=== PATIENT | male | born 1985 | race Caucasian/White ===

== ENCOUNTER 2017-09-01 11:01 | Outpatient (CLI) | payer MEDICAID ==
[2017-09-01 11:18] LABS: MUDS CUTOFF CONCENTRATIONS CUTOFF CONC BELOW:
[2017-09-01 11:30] LABS: COCAINE SCREEN URINE NEGATIVE (NEGATIVE); METHAMPHETAMINES SCREEN, URINE NEGATIVE (NEGATIVE); OPIATE SCREEN, URINE NEGATIVE (NEGATIVE)
[2017-09-01 11:31] LABS: AMPHETAMINE SCREEN,URINE NEGATIVE (NEGATIVE); BENZODIAZEPINES SCREEN, URINE NEGATIVE (NEGATIVE); METHADONE SCREEN, URINE NEGATIVE (NEGATIVE); OXYCODONE SCREEN, URINE NEGATIVE (NEGATIVE); PROPOXYPHENE SCREEN, URINE NEGATIVE (NEGATIVE); TRICYCLIC ANTIDEPRESSANT,URINE NEGATIVE (NEGATIVE)
== END 2017-09-01 11:02 | disposition home or self-care (01) ==
LOC: LAB 11:01
PROVIDERS: ATTEND Psychiatry & Neurology Psychiatry
DX: Z79.899 Other long term (current) drug therapy (principal)
CPT/HCPCS: 80306

== ENCOUNTER 2018-01-21 15:24 | Outpatient (CLI) | payer MEDICAID ==
[2018-01-21 15:47] LABS: BASOPHILS # (AUTO) 0.1 10^3/uL (0.0-0.1); BASOPHILS % (AUTO) 0.9 %; EOSINOPHILS # (AUTO) 0.3 10^3/uL (0.0-0.7); EOSINOPHILS % (AUTO) 3.9 %; HGB - HEMOGLOBIN 15.4 g/dL (14.0-18.0); LYMPHOCYTES # (AUTO) 2.9 10^3/uL (1.5-3.5); LYMPHOCYTES % (AUTO) 40.3 %; MEAN CORPUSCULAR HEMOGLOBIN 31.1 pg (27.0-31.0); MEAN CORPUSCULAR HGB CONC 35.6 g/dL (32.0-36.0); MEAN CORPUSCULAR VOLUME 87.3 fL (80.0-94.0); MEAN PLATELET VOLUME 8.3 fL (7.4-11.4); MONOCYTES # (AUTO) 0.9 10^3/uL (0.0-1.0); MONOCYTES % (AUTO) 12.7 %; NEUTROPHILS % (AUTO) 42.2 %; PLT - PLATELET COUNT 216 10^3/uL (130-450); RED BLOOD COUNT 4.97 10^6/uL (4.70-6.10); RED CELL DISTRIBUTION WIDTH 13.8 % (12.0-15.0); WHITE BLOOD COUNT 7.1 x10^3/uL (4.8-10.8)
[2018-01-21 16:03] LABS: ALBUMIN 4.2 g/dL (3.2-5.5); ALBUMIN/GLOBULIN RATIO 1.4 (1.0-2.2); ALKALINE PHOSPHATASE 63 IU/L (42-121); ALT ALANINE AMINOTRANSFERASE 48 IU/L (10-60); AST ASPARTATE AMINOTRANSFERASE 31 IU/L (10-42); BILIRUBIN,TOTAL 1.2 mg/dL (0.2-1.0); BUN - BLOOD UREA NITROGEN 13 mg/dL (6-20); CALCIUM 9.3 mg/dL (8.5-10.3); CARBON DIOXIDE - CO2 26 mmol/L (21-32); CHLORIDE 102 mmol/L (101-111); CHOLESTEROL 240 mg/dL; CREATININE 0.8 mg/dL (0.6-1.2); GFR - MDRD 114 (>89); GLUCOSE 93 mg/dL (70-100); HDL CHOLESTEROL 40 mg/dL; SODIUM 136 mmol/L (135-145); TOTAL PROTEIN 7.2 g/dL (6.7-8.2)
[2018-01-21 16:26] LABS: LDL CHOLESTEROL,DIRECT 121 mg/dL
[2018-01-21 16:37] LABS: THYROID STIMULATING HORMONE 2.13 uIU/mL (0.34-5.60)
[2018-01-21 16:39] LABS: FREE T4 (FREE THYROXINE) 0.8 ng/dL (0.58-1.64)
[2018-01-21 16:44] LABS: TOTAL T3 1.03 ng/mL (0.87-1.78)
== END 2018-01-21 15:25 | disposition home or self-care (01) ==
LOC: LAB 15:24
PROVIDERS: ATTEND Registered Nurse
DX: F20.9 Schizophrenia, unspecified (principal); Z79.899 Other long term (current) drug therapy
CPT/HCPCS: 36415; 80050; 80061; 80306; 83721; 84439; 84480

== ENCOUNTER 2018-01-24 08:00 | Outpatient (CLI) | payer MEDICAID ==
[2018-01-24 08:32] LABS: MUDS CUTOFF CONCENTRATIONS CUTOFF CONC BELOW:
[2018-01-24 08:52] LABS: AMPHETAMINE SCREEN,URINE NEGATIVE (NEGATIVE); BENZODIAZEPINES SCREEN, URINE NEGATIVE (NEGATIVE); COCAINE SCREEN URINE NEGATIVE (NEGATIVE); METHADONE SCREEN, URINE NEGATIVE (NEGATIVE); METHAMPHETAMINES SCREEN, URINE NEGATIVE (NEGATIVE); OPIATE SCREEN, URINE NEGATIVE (NEGATIVE); OXYCODONE SCREEN, URINE NEGATIVE (NEGATIVE); PROPOXYPHENE SCREEN, URINE NEGATIVE (NEGATIVE); TRICYCLIC ANTIDEPRESSANT,URINE NEGATIVE (NEGATIVE)
== END 2018-01-24 08:01 | disposition home or self-care (01) ==
LOC: LAB.R 08:00
PROVIDERS: ATTEND Registered Nurse
DX: F20.9 Schizophrenia, unspecified (principal); Z79.899 Other long term (current) drug therapy
CPT/HCPCS: 80306

== ENCOUNTER 2018-08-26 20:33 | Outpatient (CLI) | payer SELFPAY | END 2018-08-26 20:34 | disposition EMS.NT | LOC: EMS 20:33 | PROVIDERS: ATTEND Surgery | DX: F10.129 Alcohol abuse with intoxication, unspecified (principal) ==

== ENCOUNTER 2018-11-02 01:54 | Outpatient (CLI) | payer MEDICAID | END 2018-11-02 01:55 | disposition critical access hospital (66) | LOC: EMS 01:54 | PROVIDERS: ATTEND Surgery | DX: J00 Acute nasopharyngitis [common cold] (principal) | CPT/HCPCS: A0425; A0429 ==

== ENCOUNTER 2018-11-02 02:25 | Emergency (ER) | payer MEDICAID ==
--- NOTE | 2018-11-02 02:36 | ED Physician Documentation ---
PD HPI URI - Stated complaint Stated Complaint: COUGH - Chief complaint Chief Complaint: Resp - History obtained from History obtained from: Patient, EMS - History of Present Illness Timing - onset: How many days ago (few) Timing duration: Days (few) Timing details: Gradual onset Associated symptoms: Nasal congestion, Productive cough (yellow sputum), Dyspnea (feels wheezy). No: Fever, Sore throat, NVD Contributing factors: No: Sick contact, Travel, Immunocompromised, COPD / asthma Improves by: No: Medication (tessalon Rx yesterday without improvement, seen at [facility] on [address] Worsened by: Activity, Other (repetitive coughing overnight and cannot sleep) Similar symptoms before: Has not had sx before Recently seen: Clinic (yesterday with Rx Tessalon only) Review of Systems Constitutional: reports: Myalgias, Fatigue. denies: Fever Nose: reports: Congestion. denies: Rhinorrhea / runny nose Throat: denies: Sore throat Cardiac: reports: Chest pain / pressure (with coughing) Respiratory: reports: Dyspnea, Cough GI: denies: Abdominal Pain, Nausea, Vomiting, Diarrhea Skin: denies: Rash, Lesions Neurologic: denies: Altered mental status, Headache PD PAST MEDICAL HISTORY - Past Medical History Cardiovascular: None Respiratory: None Neuro: None Psych: Anxiety - Past Surgical History Past Surgical History: Yes - Present Medications Home Medications: Ambulatory Orders Medication Instructions Recorded Confirmed Albuterol Sulf [Ventolin Hfa 2 puffs INH Q4HR PRN #1 inhaler 11/02/18 Inhaler] OLANZapine [Zyprexa] 30 mg PO DAILY 11/02/18 11/02/18 dexAMETHasone [Decadron] 4 mg PO DAILY #5 tablet 11/02/18 guaiFENesin/CODEINE [Robitussin AC] 10 ml PO Q6H PRN #240 ml 11/02/18 - Allergies Allergies/Adverse Reactions: Allergies Allergy/AdvReac Type Severity Reaction Status Date / Time No Known Drug Allergies Allergy Verified 06/05/14 18:33 - Social History Does the pt smoke?: Yes Smoking Status: Current every day smoker Does the pt drink ETOH?: No Does the pt have substance abuse?: No - Immunizations Immunizations are current?: Yes - POLST Patient has POLST: No PD ED PE NORMAL - Vitals Vital signs reviewed: Yes - General General: Alert and oriented X 3, Well developed/nourished, Other (repetitive cough and appears uncomfortable) - HEENT HEENT: Pharynx benign - Neck Neck: Supple, no meningeal sign, No adenopathy - Cardiac Cardiac: RRR, No murmur - Respiratory Respiratory: No respiratory distress. No: Clear bilaterally (some wheezing component. No coarse sounds. ) - Abdomen Abdomen: Soft, Non tender - Derm Derm: Normal color, Warm and dry - Extremities Extremities: No tenderness to palpate, Normal ROM s pain, No edema, No calf tenderness / cord - Neuro Neuro: Alert and oriented X 3, No motor deficit, 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 - Psych Psych: No: Normal affect (somewhat tangential; not pressured. ) Results - Vitals Vitals: Vital Signs - 24 hr 11/02/18 11/02/18 11/02/18 02:27 03:04 03:54 Temperature 36.8 C 36.6 C Heart Rate 120 H 109 H 100 Respiratory 19 20 16 Rate Blood Pressure 155/98 H 137/84 H O2 Saturation 95 98 Oxygen O2 Source Room air - Rads (name of study) chest xray Radiology: Prelim report reviewed, EMP read contemporaneously (no infiltrates, effusion nor PTX. ), See rad report PD MEDICAL DECISION MAKING - ED course Complexity details: reviewed results, re-evaluated patient (improved breathing and no cough after neb treatment and meds. ), considered differential (seems like viral URI. Willl get CXR to ensure no pneumonic process. ), d/w patient Departure - Departure Disposition: 01 Home, Self Care Clinical Impression: Upper respiratory infection Qualifiers: URI type: unspecified URI Qualified Code(s): J06.9 - Acute upper respiratory infection, unspecified Condition: Stable Record reviewed to determine appropriate education?: Yes Instructions: ED URI Viral W Wheezing Follow-Up: CELI BELTRAN DO [Primary Care Provider] - Prescriptions: Albuterol Sulf [Ventolin Hfa Inhaler] 2 puffs INH Q4HR PRN #1 inhaler PRN Reason: Shortness Of Air/Wheezing dexAMETHasone [Decadron] 4 mg PO DAILY #5 tablet guaiFENesin/CODEINE [Robitussin AC] 10 ml PO Q6H PRN #240 ml PRN Reason: Cough Comments: Stay well-hydrated. Continue the benzonatate as needed for cough. Add Decadron steroid for reducing inflammation of the airways and bronchials to decrease coughing. Use the albuterol inhaler 2 puffs 4 times a day for the next week and extra times if needed for cough and wheezing. Add codeine cough medicine if needed. Recheck if not better over the next several days to week. Discharge Date/Time: 11/02/18 04:00
[2018-11-02] MEDS ORDERED: ALBUTEROL NEB 2.5 MG/3 ML INH STA (02:50)
[2018-11-02] MEDS ORDERED: CHERRY SYRUP 10 ML UDC PO ONE (02:51)
[2018-11-02] MEDS ORDERED: LORazepam 1 MG TABLET PO STA (02:51)
[2018-11-02] MEDS ORDERED: DEXAMETHASONE 10 MG/ML VIAL PO STA (02:51)
[2018-11-02] MEDS ORDERED: guaiFENesin/CODEINE 5 ML UDC PO STA (02:51)
--- NOTE | 2018-11-02 03:16 | XRAY Report ---
Reason: dyspnea/ cough Procedure Date: 11/02/2018 Accession Number: [id number] / [id number] Procedure: XR - Chest 2 View X-Ray CPT Code: 09675 FULL RESULT: EXAM: CHEST RADIOGRAPHY EXAM DATE: 11/02/2018 03:03 AM. CLINICAL HISTORY: Dyspnea/ cough. COMPARISON: 06/03/2013 2:37 AM. TECHNIQUE: 2 views. FINDINGS: Lungs/Pleura: Small lung volumes. No alveolar consolidation or pleural effusion seen. No pneumothorax. Mediastinum: Heart size normal to upper normal. Other: None. IMPRESSION: 1. Small lung volumes with normal to upper normal heart size. RADIA
[2018-11-02 03:56] VITALS: BP 137/84
== END 2018-11-02 04:00 | disposition home or self-care (01) ==
LOC: EDUNIT# → ED 02:25
DX: J06.9 Acute upper respiratory infection, unspecified (principal); F17.200 Nicotine dependence, unspecified, uncomplicated
CPT/HCPCS: 71046; 94640; 99283; A9270; J8499

== ENCOUNTER 2018-11-04 17:59 | Emergency (ER) | payer MEDICAID ==
--- NOTE | 2018-11-04 19:01 | ED Physician Documentation ---
PD HPI HEENT - Stated complaint Stated Complaint: HEARING LOSS - Chief complaint Chief Complaint: Heent - History obtained from History obtained from: Patient - History of Present Illness Timing - onset: Other (Recent viral URI, decreased hearing in the left ear for the last day.) Review of Systems Constitutional: denies: Fever Ears: reports: Loss of hearing. denies: Ear pain, Drainage/discharge Nose: reports: Rhinorrhea / runny nose PD PAST MEDICAL HISTORY - Past Medical History Cardiovascular: None Respiratory: None Neuro: None Psych: Anxiety - Past Surgical History Past Surgical History: Yes - Present Medications Home Medications: Ambulatory Orders Medication Instructions Recorded Confirmed Albuterol Sulf [Ventolin Hfa 2 puffs INH Q4HR PRN #1 inhaler 11/02/18 Inhaler] OLANZapine [Zyprexa] 30 mg PO DAILY 11/02/18 11/02/18 dexAMETHasone [Decadron] 4 mg PO DAILY #5 tablet 11/02/18 guaiFENesin/CODEINE [Robitussin AC] 10 ml PO Q6H PRN #240 ml 11/02/18 Amoxicillin 500 mg PO TID #30 capsule 11/04/18 - Allergies Allergies/Adverse Reactions: Allergies Allergy/AdvReac Type Severity Reaction Status Date / Time No Known Drug Allergies Allergy Verified 11/04/18 18:30 - Social History Does the pt smoke?: Yes Smoking Status: Current every day smoker Does the pt drink ETOH?: No Does the pt have substance abuse?: No - Immunizations Immunizations are current?: Yes - POLST Patient has POLST: No PD ED PE NORMAL - Vitals Vital signs reviewed: Yes - General General: No acute distress - HEENT HEENT: PERRL, EOMI, Other (Left otitis media) - Neck Neck: Supple, no meningeal sign, No bony TTP - Psych Psych: Normal mood, Normal affect Results - Vitals Vitals: Vital Signs - 24 hr 11/04/18 18:28 Temperature 36.8 C Heart Rate 106 H Respiratory 20 Rate Blood Pressure 171/106 H O2 Saturation 95 Oxygen O2 Source Room air Departure - Departure Disposition: 01 Home, Self Care Clinical Impression: LOM (left otitis media) Qualifiers: Otitis media type: suppurative Chronicity: acute Recurrence: non-recurrent Spontaneous tympanic membrane rupture: without spontaneous rupture Qualified Code(s): H66.002 - Acute suppurative otitis media without spontaneous rupture of ear drum, left ear Condition: Good Record reviewed to determine appropriate education?: Yes Instructions: ED Otitis Media Acute Adult Prescriptions: Amoxicillin 500 mg PO TID #30 capsule Comments: Follow-up with your doctor in 1 week. Return if worse. Your blood pressure was elevated today on check into the emergency department. This does not mean that you have hypertension, it is a common phenomenon to come to the emergency department and have elevated blood pressure. I recommend that you see your primary care physician within the week to have it rechecked when you are feeling better.
[2018-11-04 19:18] VITALS: BP 155/101
== END 2018-11-04 19:17 | disposition home or self-care (01) ==
LOC: ED 17:59
DX: H66.002 Acute suppurative otitis media without spontaneous rupture of ear drum, left ear (principal); R03.0 Elevated blood-pressure reading, without diagnosis of hypertension; F17.200 Nicotine dependence, unspecified, uncomplicated
CPT/HCPCS: 99283

== ENCOUNTER 2019-03-06 03:31 | Outpatient (CLI) | payer MEDICARE | END 2019-03-06 03:32 | disposition critical access hospital (66) | LOC: EMS 03:31 | PROVIDERS: ATTEND Surgery | DX: S01.01XA Laceration without foreign body of scalp, initial encounter (principal); W01.190A Fall on same level from slipping, tripping and stumbling with subsequent striking against furniture, initial encounter; Y93.01 Activity, walking, marching and hiking; Y92.003 Bedroom of unspecified non-institutional (private) residence as the place of occurrence of the external cause | CPT/HCPCS: A0425; A0429 ==

== ENCOUNTER 2019-03-06 04:00 | Emergency (ER) | payer MEDICAID, MEDICARE ==
--- NOTE | 2019-03-06 04:32 | ED Physician Documentation ---
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 denies LOC, denies SALAS Review of Systems Eyes: reports: Reviewed and negative Musculoskeletal: denies: Neck pain Neurologic: reports: Head injury. denies: Focal weakness, Numbness, Syncope, Headache, LOC PD PAST MEDICAL HISTORY - Past Medical History Cardiovascular: None Respiratory: None Neuro: None Psych: Anxiety, Schizophrenia, ADD/ADHD, Obsessive compulsive disorder - Past Surgical History Past Surgical History: Yes - Present Medications Home Medications: Ambulatory Orders Medication Instructions Recorded Confirmed Albuterol Sulf [Ventolin Hfa 2 puffs INH Q4HR PRN #1 inhaler 11/02/18 Inhaler] OLANZapine [Zyprexa] 30 mg PO DAILY 11/02/18 11/02/18 dexAMETHasone [Decadron] 4 mg PO DAILY #5 tablet 11/02/18 guaiFENesin/CODEINE [Robitussin AC] 10 ml PO Q6H PRN #240 ml 11/02/18 Amoxicillin 500 mg PO TID #30 capsule 11/04/18 - Allergies Allergies/Adverse Reactions: Allergies Allergy/AdvReac Type Severity Reaction Status Date / Time No Known Drug Allergies Allergy Verified 11/04/18 18:30 - Social History Does the pt smoke?: Yes Smoking Status: Current every day smoker Does the pt drink ETOH?: No Does the pt have substance abuse?: No - Immunizations Immunizations are current?: Yes - POLST Patient has POLST: No PD ED PE NORMAL - Vitals Vital signs reviewed: Yes - General General: Alert and oriented X 3, No acute distress, Well developed/nourished - HEENT HEENT: PERRL, EOMI - Neck Neck: No bony TTP - Neuro Neuro: Alert and oriented X 3, 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, No motor deficit, No sensory def icit, 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 PD ED PE EXPANDED - HEENT HEENT Visual: 1 - laceration (6 cm laceration, no bony step-off or crepitus, no tenderness) Results - Vitals Vitals: Oxygen O2 Source Room air Procedures - Laceration (location) Scalp left Length in cm: 6 Wound type: Linear, Into subcut fat Neurovascular status: Sensory intact, Motor intact, Vascular intact Anesthesia: Lidocaine 1% Wound Preparation: Chlorhexadine Skin layer closure: Qian Other: Patient tolerated well, No complications, Neurovascular intact, Dressing applied, Tetanus UTD Complexity: Simple PD MEDICAL DECISION MAKING - ED course Complexity details: considered differential, d/w patient Departure - Departure Disposition: 01 Home, Self Care Clinical Impression: Laceration, Head injury Condition: Good Instructions: ED Head Injury Closed, ED Laceration Scalp Stitch Or Stap Comments: Follow up with your doctor for staple removal in 8-10 days Discharge Date/Time: 03/06/19 05:55
[2019-03-06] MEDS ORDERED: LIDOCAINE 1% 2 ML VIAL SUBQ STA (04:45)
[2019-03-06] MEDS ORDERED: BACITRACIN ZINC OINT 14 GM TOP STA (05:33)
[2019-03-06 05:54] VITALS: BP 180/79
== END 2019-03-06 05:55 | disposition home or self-care (01) ==
LOC: EDUNIT# → ED 04:00
DX: S01.01XA Laceration without foreign body of scalp, initial encounter (principal); S09.90XA Unspecified injury of head, initial encounter; W01.190A Fall on same level from slipping, tripping and stumbling with subsequent striking against furniture, initial encounter; Y93.01 Activity, walking, marching and hiking; Y92.009 Unspecified place in unspecified non-institutional (private) residence as the place of occurrence of the external cause; F17.200 Nicotine dependence, unspecified, uncomplicated
CPT/HCPCS: 12002; 99281; 99282; A9270

== ENCOUNTER 2019-07-28 16:52 | Outpatient (CLI) | payer MEDICARE, MEDICAID | END 2019-07-28 23:59 | disposition EMS.NT | LOC: EMS 16:52 | PROVIDERS: ATTEND Surgery | DX: R46.89 Other symptoms and signs involving appearance and behavior (principal) ==

== ENCOUNTER 2020-02-24 13:30 | Outpatient (CLI) | payer MEDICAID, MEDICARE, OTHER | END 2020-02-24 23:59 | disposition home or self-care (01) | LOC: LAB.R 13:30 | PROVIDERS: ATTEND Registered Nurse | DX: Z20.828 Contact with and (suspected) exposure to other viral communicable diseases (principal) ==

== ENCOUNTER 2020-05-13 11:39 | Emergency (ER) | payer MEDICARE, MEDICAID | END 2020-05-13 11:40 | disposition left against medical advice (07) | LOC: ED 11:39 | DX: Z53.21 Procedure and treatment not carried out due to patient leaving prior to being seen by health care provider (principal) ==

== ENCOUNTER 2023-03-21 01:40 | Outpatient (CLI) | payer MEDICARE, MEDICAID | END 2023-03-21 01:41 | disposition critical access hospital (66) | LOC: EMS 01:40 | DX: M25.579 Pain in unspecified ankle and joints of unspecified foot (principal); X50.1XXA Overexertion from prolonged static or awkward postures, initial encounter; Y93.02 Activity, running; Y92.481 Parking lot as the place of occurrence of the external cause; R45.1 Restlessness and agitation | CPT/HCPCS: A0425; A0429 ==

== ENCOUNTER 2023-03-21 01:56 | Emergency (ER) | payer MEDICARE, MEDICAID ==
[2023-03-21 02:25] VITALS: O2SAT 100
[2023-03-21 03:11] LABS: MUDS CUTOFF CONCENTRATIONS CUTOFF CONC BELOW:
--- NOTE | 2023-03-21 03:19 | ED Physician Documentation ---
History of Present Illness - Stated complaint Stated Complaint: L ANKLE INJ - Chief complaint Chief Complaint: MHE - History obtained from History obtained from: Patient, Family - Additonal information Additional information: 38-year-old male with history of schizophrenia, amphetamine use presents for evaluation of left ankle pain. Patient states that he was running yesterday when he tripped, injuring his left ankle. He states that he is walking with a limp and wants an x-ray for evaluation. Shortly after arrival the patient's mother called stating that the patient is in desperate need of inpatient psychiatric stabilization. She states that he uses meth and substances, has schizophrenia, and has been exhibiting bizarre behavior. She states that the patient has been kicked out of almost every single rehab facility in the area as well as counseling services due to his behavior. Patient denying suicidal, homicidal ideations, denies intent to harm himself or others at this time. Did endorse amphetamine use this week. Review of Systems Constitutional: denies: Fever, Chills Musculoskeletal: reports: Joint pain. denies: Extremity swelling, Joint swelling PD PAST MEDICAL HISTORY - Past Medical History Past Medical History: Yes Cardiovascular: None Respiratory: None Neuro: None Psych: Anxiety, Schizophrenia, ADD/ADHD, Obsessive compulsive disorder - Past Surgical History Past Surgical History: No - Present Medications Home Medications: Ambulatory Orders Medication Instructions Recorded Confirmed No Known Home Medications 03/21/23 03/21/23 - Allergies Allergies/Adverse Reactions: Allergies Allergy/AdvReac Type Severity Reaction Status Date / Time No Known Drug Allergies Allergy Verified 03/21/23 02:20 - Social History Does the pt smoke?: Yes Smoking Status: Current every day smoker Does the pt drink ETOH?: No Does the pt have substance abuse?: Yes Substance Use and Type: Meth - Immunizations Immunizations are current?: Yes - POLST Patient has POLST: No PD ED PE NORMAL - Vitals Vital signs reviewed: Yes - General General: Alert and oriented X 3 - HEENT HEENT: Atraumatic - Neck Neck: Supple, no meningeal sign - Cardiac Cardiac: RRR - Respiratory Respiratory: No respiratory distress - Abdomen Abdomen: Soft, Non tender, Non distended - Derm Derm: Normal color, Warm and dry, No rash - Extremities Extremities: No deformity, No tenderness to palpate, Normal ROM s pain - Neuro Neuro: Alert and oriented X 3, 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, 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 - Psych Psych: Other (agitated) Results - Vitals Vitals: Vital Signs - 24 hr 03/21/23 03/21/23 02:00 03:30 Temperature 36.5 C 36.9 C Heart Rate 82 84 Respiratory 20 16 Rate Blood Pressure 132/106 H 128/86 H O2 Saturation 100 100 Oxygen O2 Source Room air - Labs Labs: Laboratory Tests 03/21/23 03/21/23 03/21/23 03:00 03:00 03:05 WBC 7.6 RBC 4.94 Hgb 15.2 Hct 45.0 MCV 91.1 MCH 30.8 MCHC 33.8 RDW 12.5 Plt Count 315 MPV 9.4 Neut # (Auto) 4.3 Lymph # (Auto) 2.4 [place] # (Auto) 0.7 Eos # (Auto) 0.1 Baso # (Auto) 0.0 Absolute Nucleated RBC 0.00 Nucleated RBC % 0.0 Sodium Potassium Chloride Carbon Dioxide Anion Gap BUN Creatinine Estimated GFR (MDRD) Glucose Calcium Total Bilirubin AST ALT Alkaline Phosphatase Total Protein Albumin Globulin Albumin/Globulin Ratio TSH Salicylates Urine Opiates Screen NEGATIVE Ur Oxycodone Screen NEGATIVE Urine Methadone Screen NEGATIVE Ur Propoxyphene Screen NEGATIVE Acetaminophen Ur Barbiturates Screen NEGATIVE Ur Tricyclics Screen NEGATIVE Ur Phencyclidine Scrn NEGATIVE Ur Amphetamine Screen POSITIVE H U Methamphetamines Scrn POSITIVE H U Benzodiazepines Scrn NEGATIVE Urine Cocaine Screen NEGATIVE U Cannabinoids Screen NEGATIVE Ethyl Alcohol SARS-CoV-2 (PCR) NOT DETECTED 03/21/23 03:05 WBC RBC Hgb Hct MCV MCH MCHC RDW Plt Count MPV Neut # (Auto) Lymph # (Auto) [place] # (Auto) Eos # (Auto) Baso # (Auto) Absolute Nucleated RBC Nucleated RBC % Sodium 137 Potassium 3.6 Chloride 102 Carbon Dioxide 28 Anion Gap 7.0 BUN 14 Creatinine 0.6 Estimated GFR (MDRD) 152 Glucose 80 Calcium 9.1 Total Bilirubin 0.9 AST 24 ALT 20 Alkaline Phosphatase 88 Total Protein 6.9 Albumin 4.4 Globulin 2.5 Albumin/Globulin Ratio 1.8 TSH 1.23 Salicylates < 1.5 Urine Opiates Screen Ur Oxycodone Screen Urine Methadone Screen Ur Propoxyphene Screen Acetaminophen 0.1 Ur Barbiturates Screen Ur Tricyclics Screen Ur Phencyclidine Scrn Ur Amphetamine Screen U Methamphetamines Scrn U Benzodiazepines Scrn Urine Cocaine Screen U Cannabinoids Screen Ethyl Alcohol 21.6 SARS-CoV-2 (PCR) PD Medical Decision Making - ED course Complexity details: reviewed results, re-evaluated patient, considered differential, d/w patient, d/w family ED course: Patient initially presented for ankle pain. Mother called stating that the patient urgently needed inpatient psychiatric stabilization due to longstanding history of amphetamine abuse and erratic behavior. Patient did endorse taking amphetamines, however is denying any active plans to harm himself or anyone else. That he does not meet criteria for involuntary detainment at this time. Medical clearance labs were ordered, however patient demanding to leave. Declined to stay for results of XR. Of note, XR results normal. Departure - Departure Disposition: Left Prior to Disposition Clinical Impression: Amphetamine abuse Ankle pain Qualifiers: Chronicity: acute Laterality: left Qualified Code(s): M25.572 - Pain in left ankle and joints of left foot Forms: PCP List Discharge Date/Time: 03/21/23 03:47
[2023-03-21 03:28] LABS: BASOPHILS % (AUTO) 0.5 %; EOSINOPHILS # (AUTO) 0.1 10^3/uL (0.0-0.7); EOSINOPHILS % (AUTO) 1.7 %; HGB - HEMOGLOBIN 15.2 g/dL (14.0-18.0); LYMPHOCYTES # (AUTO) 2.4 10^3/uL (1.5-3.5); LYMPHOCYTES % (AUTO) 31.8 %; MEAN CORPUSCULAR HEMOGLOBIN 30.8 pg (27.0-31.0); MEAN CORPUSCULAR HGB CONC 33.8 g/dL (32.0-36.0); MEAN CORPUSCULAR VOLUME 91.1 fL (80.0-94.0); MEAN PLATELET VOLUME 9.4 fL (7.4-11.4); MONOCYTES # (AUTO) 0.7 10^3/uL (0.0-1.0); MONOCYTES % (AUTO) 9.5 %; NEUTROPHILS # (AUTO) 4.3 10^3/uL (1.5-6.6); PLT - PLATELET COUNT 315 10^3/uL (130-450); RED BLOOD COUNT 4.94 10^6/uL (4.70-6.10); RED CELL DISTRIBUTION WIDTH 12.5 % (12.0-15.0); WHITE BLOOD COUNT 7.6 x10^3/uL (4.8-10.8)
[2023-03-21 03:40] LABS: COCAINE SCREEN URINE NEGATIVE (NEGATIVE); METHAMPHETAMINES SCREEN, URINE POSITIVE (NEGATIVE); OPIATE SCREEN, URINE NEGATIVE (NEGATIVE); THC CANNABINOID SCREEN, URINE NEGATIVE (NEGATIVE)
[2023-03-21 03:41] LABS: AMPHETAMINE SCREEN,URINE POSITIVE (NEGATIVE); BARBITURATE SCREEN,UR NEGATIVE (NEGATIVE); BENZODIAZEPINES SCREEN, URINE NEGATIVE (NEGATIVE); METHADONE SCREEN, URINE NEGATIVE (NEGATIVE); OXYCODONE SCREEN, URINE NEGATIVE (NEGATIVE); PROPOXYPHENE SCREEN, URINE NEGATIVE (NEGATIVE); TRICYCLIC ANTIDEPRESSANT,URINE NEGATIVE (NEGATIVE)
[2023-03-21 04:05] VITALS: BP 128/86
[2023-03-21 04:30] LABS: ACETAMINOPHEN 0.1 ug/mL; ALBUMIN 4.4 g/dL (3.2-5.5); ALBUMIN/GLOBULIN RATIO 1.8 (1.0-2.2); ALKALINE PHOSPHATASE 88 IU/L (42-121); ALT ALANINE AMINOTRANSFERASE 20 IU/L (10-60); AST ASPARTATE AMINOTRANSFERASE 24 IU/L (10-42); BILIRUBIN,TOTAL 0.9 mg/dL (0.2-1.0); BUN - BLOOD UREA NITROGEN 14 mg/dL (6-20); CALCIUM 9.1 mg/dL (8.5-10.3); CARBON DIOXIDE - CO2 28 mmol/L (21-32); CHLORIDE 102 mmol/L (101-111); CREATININE 0.6 mg/dL (0.6-1.3); ETOH - ETHANOL 21.6 mg/dL; GFR - MDRD 152 (>89); GLUCOSE 80 mg/dL (74-104); POTASSIUM 3.6 mmol/L (3.5-4.5); SODIUM 137 mmol/L (135-145); TOTAL PROTEIN 6.9 g/dL (6.4-8.9)
[2023-03-21 04:43] LABS: SALICYLATE < 1.5 mg/dL
[2023-03-21 05:03] LABS: THYROID STIMULATING HORMONE 1.23 uIU/mL (0.34-5.60)
--- NOTE | 2023-03-21 07:33 | XRAY Report ---
PROCEDURE: Ankle 3 View LT INDICATIONS: GLF/PAIN TECHNIQUE: 3 views of the ankle were acquired. COMPARISON: None. FINDINGS: Bones: No fractures or dislocations. Ankle mortise is normally aligned. No suspicious bony lesions . Soft tissues: No tibiotalar joint effusion. Achilles tendon appears normal. IMPRESSION: No acute bony abnormality. Findings are concordant with preliminary interpretation provided by [facility]. Reviewed by: Smooth Stephens MD on 03/21/2023 7:31 AM PDT Approved by: Smooth Stephens MD on 03/21/2023 7:31 AM PDT Station ID: [id number]
== END 2023-03-21 03:47 | disposition home or self-care (01) ==
LOC: EDUNIT# → ED 01:56
DX: M25.572 Pain in left ankle and joints of left foot (principal); F15.10 Other stimulant abuse, uncomplicated; F17.200 Nicotine dependence, unspecified, uncomplicated
CPT/HCPCS: 36415; 73610; 80053; 80306; 80307; 84443; 85025; 87635; 99283; G0480; 80320; 80329

== ENCOUNTER 2023-08-01 21:07 | Outpatient (CLI) | payer MEDICARE, MEDICAID | END 2023-08-01 21:08 | disposition critical access hospital (66) | LOC: EMS 21:07 | DX: R44.0 Auditory hallucinations (principal); R44.1 Visual hallucinations; F15.90 Other stimulant use, unspecified, uncomplicated | CPT/HCPCS: A0425; A0429 ==

== ENCOUNTER 2023-08-01 21:23 | Emergency (ER) | payer MEDICARE, MEDICAID ==
--- NOTE | 2023-08-01 21:21 | ED Physician Documentation ---
History of Present Illness - Stated complaint Stated Complaint: HALLUCINATIONS - History obtained from History obtained from: Patient, EMS - Additonal information Additional information: BIBA. Patient called 911 approximately 30 minutes after smoking 2 g of methamphetamine. He says he thinks there might also have been fentanyl mixed in with the meth. He called 911 due to having visual and auditory hallucinations immediately after smoking the methamphetamine. EMS says they arrived to a local gas station convenience store and found patient was locked in the bathroom. Patient was diaphoretic with pressured/constant speech. However, EMS notes that patient is, and has been, cooperative and that he does answer questions with what sounds like appropriate/accurate answers. On my HPI, patient is calm, cooperative and answers my questions. I do note that he is excessively verbose, constantly talking but does allow interruptions for questions which, again, he answers with what seems like appropriate answers. Even when he is constantly talking, there is a narrative that is relevant to the ED visit. For example, he says he is not currently taking any medications, but that he is supposed to be taking Latuda. He says he estimates he has not taken this for 2 or 3 weeks because he could no longer afford it since becoming undomiciled. He says he plans to go to [facility] tomorrow but is having difficulty getting in touch with his father to drive him there. Review of Systems Eyes: denies: Loss of vision, Decreased vision, Photophobia Cardiac: denies: Chest pain / pressure, Palpitations Respiratory: denies: Dyspnea GI: denies: Abdominal Pain, Nausea, Vomiting Neurologic: denies: Generalized weakness, Focal weakness, Numbness, Confused, Altered mental status, Headache Psychiatric: reports: Suicidal, Hallucinations, Anxiety. denies: Homicidal PD PAST MEDICAL HISTORY - Past Medical History Past Medical History: Yes Other Past Medical History: per KYE form: "hx notable for polysubstance abuse including alcohol, crack cocaine, and methamphetamine, schizophrenia, and bipolar I disorder" - Present Medications Home Medications: Ambulatory Orders Medication Instructions Recorded Confirmed Lurasidone HCl 20 mg PO DAILY #14 tab 08/02/23 - Allergies Allergies/Adverse Reactions: Allergies Allergy/AdvReac Type Severity Reaction Status Date / Time No Known Drug Allergies Allergy Verified 08/01/23 21:53 PD ED PE NORMAL - Vitals Vital signs reviewed: Yes - General General: Alert and oriented X 3, No acute distress, Well developed/nourished - HEENT HEENT: EOMI - Neck Neck: Supple, no meningeal sign - Cardiac Cardiac: RRR, No murmur - Respiratory Respiratory: No respiratory distress, Clear bilaterally - Abdomen Abdomen: Soft, Non tender - Neuro Neuro: Alert and oriented X 3 Eye Opening: Spontaneous Motor: Obeys Commands Verbal: Oriented GCS Score: 15 PD ED PE EXPANDED - Eyes Eyes: Other (pupils are equal but dilated; react to light but constrict less than appropriate for stimulus) - Psych Psych: Anxious, Pressured speech, Other (reporting AH/VH although does not appear to be responding to internal stimuli) Results - Vitals Vitals: Vital Signs - 24 hr 08/01/23 08/02/23 21:36 05:20 Temperature 36.5 C Heart Rate 98 76 Respiratory 20 16 Rate Blood Pressure 118/88 H 135/95 H O2 Saturation 97 96 Oxygen O2 Source Room air - Labs Labs: Laboratory Tests 08/01/23 08/01/23 08/01/23 21:43 22:03 22:03 WBC 5.8 RBC 4.31 L Hgb 13.0 L Hct 38.3 L MCV 88.9 MCH 30.2 MCHC 33.9 RDW 12.9 Plt Count 272 MPV 9.4 Neut # (Auto) 2.1 Lymph # (Auto) 2.5 [place] # (Auto) 0.9 Eos # (Auto) 0.2 Baso # (Auto) 0.0 Absolute Nucleated RBC 0.00 Nucleated RBC % 0.0 Sodium 136 Potassium 4.1 Chloride 103 Carbon Dioxide 25 Anion Gap 8.0 BUN 13 Creatinine 0.6 Estimated GFR (MDRD) 152 Glucose 101 Calcium 9.2 Magnesium 1.8 Total Bilirubin 0.4 AST 14 ALT 18 Alkaline Phosphatase 92 Total Creatine Kinase 133 Total Protein 6.9 Albumin 4.1 Globulin 2.8 Albumin/Globulin Ratio 1.5 Lipase 14 TSH 2.37 Urine Color LIGHT YELLOW Urine Clarity CLEAR Urine pH 5.5 Ur Specific [place] 1.010 Urine Protein NEGATIVE Urine Glucose (UA) NEGATIVE Urine Ketones NEGATIVE Urine Occult Blood NEGATIVE Urine Nitrite NEGATIVE Urine Bilirubin NEGATIVE Urine Urobilinogen 0.2 (NORMAL) Ur Leukocyte Esterase NEGATIVE Ur Microscopic Review NOT INDICATED Urine Culture Comments NOT INDICATED Salicylates < 1.5 Urine Opiates Screen NEGATIVE Ur Buprenorphine Scrn NEGATIVE Ur Oxycodone Screen NEGATIVE Urine Methadone Screen NEGATIVE Acetaminophen 1.6 Ur Barbiturates Screen NEGATIVE Ur Tricyclics Screen NEGATIVE Ur Phencyclidine Scrn NEGATIVE Ur Amphetamine Screen POSITIVE H U Methamphetamines Scrn NEGATIVE U Benzodiazepines Scrn NEGATIVE Urine Cocaine Screen NEGATIVE U Cannabinoids Screen NEGATIVE Ur Drug Screen Comment CUTOFF CONC BELOW: Ethyl Alcohol 53.3 PD Medical Decision Making - ED course Complexity details: reviewed results, re-evaluated patient, considered differential, d/w patient ED course: Patient's initial presentation to the emergency department is due to chief complaint of auditory and visual hallucinations which, in turn, seem to be temporally related to using methamphetamines earlier this evening. He is exceedingly verbose, appears to be anxious. I recommended to patient and injection of lorazepam; I explained the purpose of this medication and the intended effect. Patient is agreeable. This medication is not being given as a chemical restraint; it is being given to counteract the stimulant effect of the methamphetamines that the patient use earlier this evening. 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 He did not offer this as part of his chief complaint during HPI; rather, it was brought up during routine questions asked while patient's by ED RN at triage. Thus, MHE-oriented testing is ordered. Will consider telepsychiatric consult once patient seems to be less influenced by the methamphetamines so that his thought process/mentation is more clear and the suicidal thoughts can be more accurately and confidently assessed. Shortly after the history and physical was completed, I was able to access patient's KYE form. The KYE form reflects a striking number of [facility] ED visits, totalling 82 ED visits to 13 different EDs over past 12 months. There were at least 9 ED visits in the month of May alone with visits to two different EDs on 06/27/23 as well as 06/25/23. Telepsychiatric consult is obtained and they recommend outpatient treatment. As such, they have closed this case from their perspective. The telepsychiatric note indicates that patient repeatedly denied SI on this interview. The telepsychiatrist recommends a dose of Latuda 20 mg now and Rx for 20 mg daily of Latuda. Unfortunately, we do not have this medication in stock at [facility], but I am providing a 2-week prescription for Latuda 20 mg p.o. daily. Departure - Departure Disposition: 01 Home, Self Care Clinical Impression: Substance abuse Condition: Good Instructions: ED Drug Abuse General Prescriptions: Lurasidone HCl 20 mg PO DAILY #14 tab Comments: There were no concerning findings on tonight's tests (blood test, urinalysis). You were given 2 mg lorazepam as an injection; this is an anti-anxiety medication and was given to help reduce the symptoms you are having due to the methamphetamine use. I have provided you with a prescription for lurasidone, 2-week supply. You need to arrange for follow-up with an outpatient medical practitioner with whom you can establish a regular pattern of scheduled visits. They can provide you with more of this medication if they feel it is appropriate. Forms: PCP List Discharge Date/Time: 08/02/23 05:21
[2023-08-01] MEDS: LORazepam 2 MG/ML VIAL IM STA ×2 (21:54→22:15)
[2023-08-01 22:07] LABS: BASOPHILS % (AUTO) 0.7 %; EOSINOPHILS # (AUTO) 0.2 10^3/uL (0.0-0.7); EOSINOPHILS % (AUTO) 3.8 %; HCT - HEMATOCRIT 38.3 % (42.0-52.0); LYMPHOCYTES # (AUTO) 2.5 10^3/uL (1.5-3.5); LYMPHOCYTES % (AUTO) 43.4 %; MEAN CORPUSCULAR HEMOGLOBIN 30.2 pg (27.0-31.0); MEAN CORPUSCULAR HGB CONC 33.9 g/dL (32.0-36.0); MEAN CORPUSCULAR VOLUME 88.9 fL (80.0-94.0); MEAN PLATELET VOLUME 9.4 fL (7.4-11.4); MONOCYTES # (AUTO) 0.9 10^3/uL (0.0-1.0); MONOCYTES % (AUTO) 15.8 %; NEUTROPHILS # (AUTO) 2.1 10^3/uL (1.5-6.6); NEUTROPHILS % (AUTO) 35.4 %; PLT - PLATELET COUNT 272 10^3/uL (130-450); RED BLOOD COUNT 4.31 10^6/uL (4.70-6.10); RED CELL DISTRIBUTION WIDTH 12.9 % (12.0-15.0); WHITE BLOOD COUNT 5.8 x10^3/uL (4.8-10.8)
[2023-08-01 22:17] LABS: BILIRUBIN,URINE NEGATIVE (NEGATIVE); GLUCOSE, URINE (UA) NEGATIVE (NEGATIVE); KETONES,URINE (UA) NEGATIVE (NEGATIVE); LEUKOCYTE ESTERASE, URINE NEGATIVE (NEGATIVE); NITRITE,URINE NEGATIVE (NEGATIVE); OCCULT BLOOD,URINE NEGATIVE (NEGATIVE); PH,URINE 5.5 PH (5.0-7.5); PROTEIN,URINE NEGATIVE (NEGATIVE); UROBILINOGEN,URINE 0.2 (NORMAL) E.U./dL (NORMAL)
[2023-08-01 22:18] LABS: CLARITY,URINE CLEAR (CLEAR)
[2023-08-01 22:26] LABS: ACETAMINOPHEN 1.6 ug/mL; ALBUMIN 4.1 g/dL (3.2-5.5); ALBUMIN/GLOBULIN RATIO 1.5 (1.0-2.2); ALKALINE PHOSPHATASE 92 IU/L (42-121); ALT ALANINE AMINOTRANSFERASE 18 IU/L (10-60); AST ASPARTATE AMINOTRANSFERASE 14 IU/L (10-42); BILIRUBIN,TOTAL 0.4 mg/dL (0.2-1.0); BUN - BLOOD UREA NITROGEN 13 mg/dL (6-20); CALCIUM 9.2 mg/dL (8.5-10.3); CARBON DIOXIDE - CO2 25 mmol/L (21-32); CHLORIDE 103 mmol/L (101-111); CK- CREATINE KINASE 133 IU/L (30-223); CREATININE 0.6 mg/dL (0.6-1.3); ETOH - ETHANOL 53.3 mg/dL; GFR - MDRD 152 (>89); GLUCOSE 101 mg/dL (74-104); LIPASE 14 U/L (11-82); MAGNESIUM 1.8 mg/dL (1.7-2.3); POTASSIUM 4.1 mmol/L (3.5-4.5); SODIUM 136 mmol/L (135-145); TOTAL PROTEIN 6.9 g/dL (6.4-8.9)
[2023-08-01 22:27] LABS: COCAINE SCREEN URINE NEGATIVE (NEGATIVE); THC CANNABINOID SCREEN, URINE NEGATIVE (NEGATIVE)
[2023-08-01 22:28] LABS: AMPHETAMINE SCREEN,URINE POSITIVE (NEGATIVE); BARBITURATE SCREEN,UR NEGATIVE (NEGATIVE); BENZODIAZEPINES SCREEN, URINE NEGATIVE (NEGATIVE); BUPRENORPHINE SCREEN, URINE NEGATIVE (NEGATIVE); METHADONE SCREEN, URINE NEGATIVE (NEGATIVE); METHAMPHETAMINES SCREEN, URINE NEGATIVE (NEGATIVE); OPIATE SCREEN, URINE NEGATIVE (NEGATIVE); OXYCODONE SCREEN, URINE NEGATIVE (NEGATIVE); TRICYCLIC ANTIDEPRESSANT,URINE NEGATIVE (NEGATIVE)
[2023-08-01 22:30] LABS: SALICYLATE < 1.5 mg/dL
[2023-08-01 22:37] LABS: THYROID STIMULATING HORMONE 2.37 uIU/mL (0.34-5.60)
--- NOTE | 2023-08-02 02:21 | TELEPSYCH PHYS NOTE ---
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 He says that he wanted to come to the hospital because his father was not answering the phone and he needs to get to his outpatient appointment tomorrow and they are supposed to set him up with an inpatient treatment program. Provider asked a couple of times about any suicidal thoughts and he maintains that he is not having any. Patient rates his depression at a 5/10, and his anxiety also at a 5/10. When asked about sleep, he says that he has been sleeping well. He shared with the ED that he was taking Latuda and stopped this about two weeks ago. He says thet he has not been taking it because he is unhoused at this time and that makes it hard to keep track of his medications. He reports no problems with his appetite. Reports that the hallucinations have subsided. Suicide Ideation - Homicide Ideation - Self Harm: Denies SI, HI or self harm Psychiatric History - Treatment History: Dx- Bipolar disorder, or schizoaffective disorder Meds- was taking Latuda up until 2 weeks ago, unsure of the dose OP- [facility] IP- Multiple past admissions, [place] July 01 Community Resources Accessed: See OP Family Psych History/ History of suicide: Denies Nutritional Status: No nutritional concerns - Medication & Allergies Allergies/Adverse Reactions: Allergies Allergy/AdvReac Type Severity Reaction Status Date / Time No Known Drug Allergies Allergy Verified 08/01/23 21:53 - Drug & Alcohol History Does patient have Drug/ETOH history or addictive behavior?: Yes Abuse: Recurrent use of substance despite neg consequences: Alcohol, Other (Meth) Abuse Issues: Intoxication, Perceptual Disturbance, Psychosis, Mood Disorder Tobacco Details: Cigarettes - Trauma Does the patient have a history of trauma, abuse, neglect or explotation?: No History of trauma, abuse, neglect, or exploitation (Notes): Denies - Personal Information Does the patient have a history or present tendencies for violence?: Past History or present tendencies for violence (Notes): Per chart yes but patient denies this Services History: Denies Does patient have any Legal Charges or Investigations?: Yes Legal Charges or Investigations (Notes): Theft 3 assault DV, Assault 4-5, and several other charges Environment & Living Situation - Social, Peer-Group (Note): At home, Homeless Environment & Living Situation - Social, Peer-Group (Notes): Unhoused and wants to go to treatment Marital Status - Family Circumstances: Never and no children Stressors - Financial Concerns: See HPI- Unhoused Education: Some college Occupation: Was working on getting his Dev[employer] degree Collateral - Interdisciplinary Input: ED provider discussed case prior to this tag writer meeting with him and shared that someone huggins dnoted that he had SI. - Medical History Psychiatric: reports: Anxiety, Bipolar disorder Childhood History: "Normal." - Mental Status Exam Appearance and Attire: In hospital scrubs and reclining in bed Attitude and Behavior: Calm and cooperative Speech: Slurred and hard to understand often, had to me asked to clarify several times Affect and Mood: Mood is moderately depressed and affect is euthymic Association and Thought Process: Logical and linear overall Thought Content: Some fixation on the appointment later today but otherwise no delusions or obsessions noted Perception: Denies current AVH and none suspected based on his presentation Sensorium, memory and orientation: Alert and oriented x 4 Intellectual - Cognitive functioning: Mild intellectual struggles likely due to influence of drugs Insight and Judgement: Insight is poor and judgement is fair Emotional and Behavioral Functioning: Limited distress tolerance skills and seems to use meth and alcohol to manage distress Ability to Self-Care: Poor - Personal Goals Short-term Goals: "To get to [facility]" Long-term Goals: "To get treatment for drugs and alcohol." - Risk/Protective Factors Risk Factors: Trigger events leading to humiliation, shame and/or despair, Substance intoxication or withdrawal, Pending incarceration or homelessness Protective Factors / Internal: Religion beliefs, Identifies reasons for living Protective Factors / External: Cultural, spiritual and/or moral attitudes against suicide, Supportive social network of family or friends, Positive therapeutic relationships - Plan Impression/Risk Assessment: Patient brought in to the ED for hallucinations after smoking meth. He says that he wanted to rest here until he could reach his father to get him to his OP appointment with [facility] tomorrow. Patient has a very extensive history of ED visits and IP treatment. Today he is clearly denying any SI, HI or current AVH. He has been off of his medications for 2 weeks due to his being unhoused and having trouble with routine. He wants to get into drug and alcohol treatment that his OP providers have been working on setting him up with. He is future oriented. Treatment - Therapy Recommendations: Outpatient care who can continue to work with him on referral for D/A tx Pharmacological Recommendations: Provide Latuda 20 mg PO daily with food one dose now until he is able to get to his appointment with [facility] . - Time Spent & Provider Location Telepsych consultation conducted via videoconferencing: Yes List names and roles of persons who participated in consult: MARCELINO Granado Telepsych Provider Location: [place], [place] Time Spent (Minutes): 30
[2023-08-02 05:25] VITALS: BP 135/95; O2SAT 96
== END 2023-08-02 05:21 | disposition home or self-care (01) ==
LOC: ED 21:23 → MERGE 21:23 → ED 08-02 05:21
DX: F15.10 Other stimulant abuse, uncomplicated (principal); F20.9 Schizophrenia, unspecified; F31.9 Bipolar disorder, unspecified; F41.9 Anxiety disorder, unspecified; Z59.00 Homelessness unspecified; Z79.899 Other long term (current) drug therapy
CPT/HCPCS: 36415; 80053; 80143; 80306; 81003; 82550; 83690; 83735; 84443; 85025; 96374; 99283; 99284; G0425; G0480; J2060; Q3014; 80179; 81001; 82077; 87086

== ENCOUNTER 2024-02-18 22:23 | Outpatient (CLI) | payer MEDICARE, MEDICAID | END 2024-02-18 23:59 | disposition critical access hospital (66) | LOC: EMS 22:23 | DX: R44.3 Hallucinations, unspecified (principal) | CPT/HCPCS: A0425; A0429 ==

== ENCOUNTER 2024-02-18 22:39 | Emergency (ER) | payer MEDICARE, MEDICAID ==
--- NOTE | 2024-02-18 22:56 | ED Physician Documentation ---
History of Present Illness - Stated complaint Stated Complaint: METH OD/HALLUCINATIONS - Chief complaint Chief Complaint: General - History obtained from History obtained from: Patient, EMS - Additonal information Additional information: 39-year-old male with history of schizophrenia and methamphetamine use presents by EMS from [facility] for agitation and hallucinations following meth use. Patient stated to EMS that he smoked 2.5 g of methamphetamine earlier today, which is 4- 5 times what he normally would take. He tried to go to [facility] but they did not have any detox beds. Patient then stated he "didn't feel safe outside" and called 911. Patient does appear to be under the influence of a stimulant, but is following commands and does not appear to be in any distress. Review of Systems Unable to obtain: Intoxicated PD PAST MEDICAL HISTORY - Past Medical History Cardiovascular: None Respiratory: None Neuro: None Psych: Schizophrenia, Obsessive compulsive disorder, Bipolar disorder, Anxiety, ADD/ADHD - Past Surgical History Past Surgical History: No - Present Medications Home Medications: Ambulatory Orders Medication Instructions Recorded Confirmed No Known Home Medications 03/21/23 03/21/23 Lurasidone HCl 20 mg PO DAILY #14 tab 08/02/23 - Allergies Allergies/Adverse Reactions: Allergies Allergy/AdvReac Type Severity Reaction Status Date / Time No Known Drug Allergies Allergy Verified 02/18/24 22:47 - Social History Does the pt smoke?: Yes Smoking Status: Current every day smoker Does the pt drink ETOH?: Yes Does the pt have substance abuse?: Yes Substance Use and Type: Meth - Immunizations Immunizations are current?: Yes - POLST Patient has POLST: No PD ED PE NORMAL - Vitals Vital signs reviewed: Yes - General General: No acute distress, Other (appears intoxicated) - Cardiac Cardiac: RRR, Strong equal pulses - Respiratory Respiratory: No respiratory distress, Clear bilaterally - Derm Derm: Normal color, Warm and dry, No rash - Extremities Extremities: No deformity, No tenderness to palpate, Normal ROM s pain, No edema - Neuro Neuro: Alert and oriented X 3, dietetics teacher 2-12 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, No motor deficit Results - Vitals Vitals: Vital Signs - 24 hr 02/18/24 02/19/24 22:40 06:03 Temperature 36.6 C 36.9 C Heart Rate 100 81 Respiratory 16 16 Rate Blood Pressure 121/81 H 133/88 H O2 Saturation 97 99 Oxygen O2 Source Room air - Labs Labs: Laboratory Tests 02/18/24 02/18/24 02/19/24 23:08 23:08 00:09 WBC 6.4 RBC 4.42 L Hgb 13.6 L Hct 39.1 L MCV 88.5 MCH 30.8 MCHC 34.8 RDW 13.1 Plt Count 275 MPV 9.5 Neut # (Auto) 3.6 Lymph # (Auto) 2.1 [place] # (Auto) 0.7 Eos # (Auto) 0.1 Baso # (Auto) 0.0 Absolute Nucleated RBC 0.00 Nucleated RBC % 0.0 Sodium 137 Potassium 3.6 Chloride 103 Carbon Dioxide 25 Anion Gap 9.0 BUN 11 Creatinine 0.7 Estimated GFR (MDRD) 127 Glucose 128 H Calcium 9.1 Total Bilirubin 0.9 AST 21 ALT 17 Alkaline Phosphatase 69 Total Protein 6.2 L Albumin 3.9 Globulin 2.3 Albumin/Globulin Ratio 1.7 Urine Color YELLOW Urine Clarity CLEAR Urine pH 6.0 Ur Specific [place] >=1.030 H Urine Protein NEGATIVE Urine Glucose (UA) NEGATIVE Urine Ketones 15 H Urine Occult Blood NEGATIVE Urine Nitrite NEGATIVE Urine Bilirubin NEGATIVE Urine Urobilinogen 0.2 (NORMAL) Ur Leukocyte Esterase NEGATIVE Ur Microscopic Review NOT INDICATED Urine Culture Comments NOT INDICATED Salicylates < 1.5 Urine Opiates Screen NEGATIVE Ur Buprenorphine Scrn NEGATIVE Ur Oxycodone Screen NEGATIVE Urine Methadone Screen NEGATIVE Acetaminophen < 0.1 Ur Barbiturates Screen NEGATIVE Ur Tricyclics Screen NEGATIVE Ur Phencyclidine Scrn NEGATIVE Ur Amphetamine Screen NEGATIVE U Methamphetamines Scrn POSITIVE H U Benzodiazepines Scrn NEGATIVE Urine Cocaine Screen NEGATIVE U Cannabinoids Screen POSITIVE H Ur Drug Screen Comment CUTOFF CONC BELOW: Ethyl Alcohol 34.0 PD Medical Decision Making - ED course Complexity details: reviewed old records, reviewed results, re-evaluated patient, considered differential, d/w patient ED course: Hallucinations after consumption of large amounts of methamphetamine. Patient denying acute complaints, is able to verbalize that he "doesn't feel safe" outs [facility], however this was after [facility] had no available beds. Patient denying any active suicidal or homicidal ideations, do not believe he is a danger to self other than his ill advised methamphetamine consumption. Patient monitored overnight, he slept the entire night without incidence. In the morning he was awake, alert, no acute distress, denying any complaints. No longer verbalizing that he felt unsafe. Patient declining detox resources. Patient discharged in stable condition. Departure - Departure Disposition: 01 Home, Self Care Clinical Impression: Methamphetamine intoxication Condition: Stable Instructions: ED Drug Abuse General Comments: [facility] [address] [place] [address] Forms: PCP List Discharge Date/Time: 02/19/24 06:18
[2024-02-18 23:15] LABS: BASOPHILS % (AUTO) 0.5 %; EOSINOPHILS # (AUTO) 0.1 10^3/uL (0.0-0.7); EOSINOPHILS % (AUTO) 1.2 %; HCT - HEMATOCRIT 39.1 % (42.0-52.0); HGB - HEMOGLOBIN 13.6 g/dL (14.0-18.0); LYMPHOCYTES # (AUTO) 2.1 10^3/uL (1.5-3.5); MEAN CORPUSCULAR HEMOGLOBIN 30.8 pg (27.0-31.0); MEAN CORPUSCULAR HGB CONC 34.8 g/dL (32.0-36.0); MEAN CORPUSCULAR VOLUME 88.5 fL (80.0-94.0); MEAN PLATELET VOLUME 9.5 fL (7.4-11.4); MONOCYTES # (AUTO) 0.7 10^3/uL (0.0-1.0); MONOCYTES % (AUTO) 10.1 %; NEUTROPHILS # (AUTO) 3.6 10^3/uL (1.5-6.6); NEUTROPHILS % (AUTO) 55.9 %; PLT - PLATELET COUNT 275 10^3/uL (130-450); RED BLOOD COUNT 4.42 10^6/uL (4.70-6.10); RED CELL DISTRIBUTION WIDTH 13.1 % (12.0-15.0); WHITE BLOOD COUNT 6.4 x10^3/uL (4.8-10.8)
[2024-02-18] MEDS: LORazepam 1 MG TABLET PO STA (23:16)
[2024-02-18 23:32] LABS: ALBUMIN 3.9 g/dL (3.2-5.5); ALBUMIN/GLOBULIN RATIO 1.7 (1.0-2.2); ALKALINE PHOSPHATASE 69 IU/L (42-121); ALT ALANINE AMINOTRANSFERASE 17 IU/L (10-60); AST ASPARTATE AMINOTRANSFERASE 21 IU/L (10-42); BILIRUBIN,TOTAL 0.9 mg/dL (0.2-1.0); BUN - BLOOD UREA NITROGEN 11 mg/dL (6-20); CALCIUM 9.1 mg/dL (8.5-10.3); CARBON DIOXIDE - CO2 25 mmol/L (21-32); CHLORIDE 103 mmol/L (101-111); CREATININE 0.7 mg/dL (0.6-1.3); GFR - MDRD 127 (>89); GLUCOSE 128 mg/dL (74-104); POTASSIUM 3.6 mmol/L (3.5-4.5); SODIUM 137 mmol/L (135-145); TOTAL PROTEIN 6.2 g/dL (6.4-8.9)
[2024-02-18 23:33] LABS: ACETAMINOPHEN < 0.1 ug/mL; SALICYLATE < 1.5 mg/dL
[2024-02-19 00:29] LABS: BILIRUBIN,URINE NEGATIVE (NEGATIVE); GLUCOSE, URINE (UA) NEGATIVE (NEGATIVE); KETONES,URINE (UA) 15 mg/dL (NEGATIVE); LEUKOCYTE ESTERASE, URINE NEGATIVE (NEGATIVE); NITRITE,URINE NEGATIVE (NEGATIVE); OCCULT BLOOD,URINE NEGATIVE (NEGATIVE); PROTEIN,URINE NEGATIVE (NEGATIVE); UROBILINOGEN,URINE 0.2 (NORMAL) E.U./dL (NORMAL)
[2024-02-19 00:37] LABS: CLARITY,URINE CLEAR (CLEAR)
[2024-02-19 00:40] LABS: AMPHETAMINE SCREEN,URINE NEGATIVE (NEGATIVE); BARBITURATE SCREEN,UR NEGATIVE (NEGATIVE); BENZODIAZEPINES SCREEN, URINE NEGATIVE (NEGATIVE); BUPRENORPHINE SCREEN, URINE NEGATIVE (NEGATIVE); COCAINE SCREEN URINE NEGATIVE (NEGATIVE); METHADONE SCREEN, URINE NEGATIVE (NEGATIVE); METHAMPHETAMINES SCREEN, URINE POSITIVE (NEGATIVE); OPIATE SCREEN, URINE NEGATIVE (NEGATIVE); OXYCODONE SCREEN, URINE NEGATIVE (NEGATIVE); THC CANNABINOID SCREEN, URINE POSITIVE (NEGATIVE); TRICYCLIC ANTIDEPRESSANT,URINE NEGATIVE (NEGATIVE)
[2024-02-19 06:13] VITALS: BP 133/88; O2SAT 99
== END 2024-02-19 06:18 | disposition home or self-care (01) ==
LOC: EDUNIT# → ED 22:39
DX: F15.129 Other stimulant abuse with intoxication, unspecified (principal); F20.9 Schizophrenia, unspecified; F17.200 Nicotine dependence, unspecified, uncomplicated
CPT/HCPCS: 36415; 80053; 80143; 80306; 81003; 85025; 99283; G0480; J8499; 80179; 81001; 82077; 87086

== ENCOUNTER 2024-02-20 01:28 | Outpatient (CLI) | payer MEDICARE, MEDICAID | END 2024-02-20 23:59 | disposition critical access hospital (66) | LOC: EMS 01:28 | DX: R45.89 Other symptoms and signs involving emotional state (principal); F15.90 Other stimulant use, unspecified, uncomplicated | CPT/HCPCS: A0425; A0429 ==

== ENCOUNTER 2024-02-20 01:44 | Emergency (ER) | payer MEDICARE, MEDICAID ==
--- NOTE | 2024-02-20 01:59 | ED Physician Documentation ---
History of Present Illness - Stated complaint Stated Complaint: METH USE/ANXIETY - Chief complaint Chief Complaint: General - History obtained from History obtained from: Patient, EMS - Additonal information Additional information: 39-year-old male with history of schizophrenia, amphetamine use presents for generalized anxiety after large dose of methamphetamine tonight. Patient reports more than 2.5 g of amphetamines smoked. Feeling anxious. Patient had tachycardia at a rate of 113 reported by EMS en route. Patient was seen last night by myself after heavy methamphetamine use. Patient stating that he felt anxious and didn't know where to go. Denies intent to harm himself or others. KYE review shows 111 previous ED visits for various complaints across at least 15 different facilities Review of Systems Constitutional: denies: Fever, Chills Cardiac: denies: Chest pain / pressure, Palpitations, Calf pain Respiratory: denies: Dyspnea, Cough, Wheezing Musculoskeletal: denies: Neck pain, Back pain, Extremity pain Psychiatric: reports: Anxiety. denies: Depressed, Suicidal, Homicidal, Insomnia PD PAST MEDICAL HISTORY - Past Medical History Past Medical History: Yes Cardiovascular: None Respiratory: None Neuro: None Psych: Schizophrenia, Obsessive compulsive disorder, Bipolar disorder, Anxiety, ADD/ADHD - Past Surgical History Past Surgical History: No - Present Medications Home Medications: Ambulatory Orders Medication Instructions Recorded Confirmed No Known Home Medications 03/21/23 03/21/23 Lurasidone HCl 20 mg PO DAILY #14 tab 08/02/23 - Allergies Allergies/Adverse Reactions: Allergies Allergy/AdvReac Type Severity Reaction Status Date / Time No Known Drug Allergies Allergy Verified 02/18/24 22:47 - Social History Does the pt smoke?: Yes Smoking Status: Current every day smoker Does the pt drink ETOH?: Yes Does the pt have substance abuse?: Yes Substance Use and Type: Meth - Immunizations Immunizations are current?: Yes - POLST Patient has POLST: No PD ED PE NORMAL - Vitals Vital signs reviewed: Yes - General General: Alert and oriented X 3, Well developed/nourished, Other (disheveled, hygiene poor) - Cardiac Cardiac: RRR - Respiratory Respiratory: No respiratory distress, Clear bilaterally - Derm Derm: Normal color, Warm and dry, No rash - Neuro Neuro: Alert and oriented X 3, 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 This is an expected side effect of large doses of methamphetamines and anxiety should improve after amphetamines metabolize. No SI/HI. Patient has clear documented abuse of the system as reviewed by YKE form and continued use of amphetamines. Patient is aware of local detox resources if he ever wants to stop using harmful substances. Departure - Departure Disposition: 01 Home, Self Care Clinical Impression: Anxiety, Methamphetamine abuse Condition: Stable Instructions: ED Drug Abuse General Comments: STOP DOING METH Forms: PCP List
[2024-02-20 02:06] VITALS: BP 132/88; O2SAT 100
== END 2024-02-20 02:21 | disposition home or self-care (01) ==
LOC: EDUNIT# → ED 01:44
DX: F15.180 Other stimulant abuse with stimulant-induced anxiety disorder (principal)
CPT/HCPCS: 99283